=== PATIENT | female | born 1985 | race Caucasian/White ===

== ENCOUNTER 2023-09-05 09:35 | Emergency (ER) | payer BC ==
[~2023-09-05] VITALS: Ht 165.1 cm; Wt 95.3 kg
[2023-09-05] MEDS ORDERED: IV NS 0.9% 1,000 ML BAG IV ONE (10:30)
[2023-09-05] MEDS ORDERED: FAMOTIDINE/PF INJ 20 MG/2 ML VIAL IV ONE ×2 (10:30→10:42)
[2023-09-05] MEDS ORDERED: diphenhydrAMINE HCL 50 MG/ML VIAL IV ONE (10:30)
[2023-09-05] MEDS ORDERED: methylPREDNISolone SOD SUCC 125 MG/2ML VIAL IV ONE (10:30)
[2023-09-05] MEDS ORDERED: diphenhydrAMINE HCL 50 MG/ML VIAL ONE (10:42)
[2023-09-05] MEDS ORDERED: methylPREDNISolone SOD SUCC 125 MG/2ML VIAL ONE (10:42)
[2023-09-05] MEDS ORDERED: EPIN0.3P3 IM (11:13)
[2023-09-05] MEDS ORDERED: FAMO-131 PO (11:13)
[2023-09-05] MEDS ORDERED: PRED20TA PO (11:13)
[2023-09-05] MEDS ORDERED: DIPH25CA83 PO (11:13)
[2023-09-05 11:57] VITALS: BP 126/75; TEMP 98.2; O2SAT 100
== END 2023-09-05 11:57 | disposition home or self-care (01) ==
LOC: ER 09:51
DX: T78.40XA Allergy, unspecified, initial encounter (principal); X58.XXXA Exposure to other specified factors, initial encounter
CPT/HCPCS: 99284; 96374; 96375; 96361; J1200; J3490; J2930; J7030

== ENCOUNTER 2023-09-05 21:07 | Emergency (ER) | payer BC ==
[~2023-09-05] VITALS: Ht 165.1 cm; Wt 95.3 kg
[~2023-09-05 21:07] MED LIST: DIPH25CA83 PO; EPIN0.3P3 IM; FAMO-131 PO; PRED20TA PO
[2023-09-05 22:01] VITALS: BP 107/75; TEMP 98.1; O2SAT 95
== END 2023-09-05 22:45 | disposition left against medical advice (07) ==
LOC: ER 21:11
DX: T78.40XA Allergy, unspecified, initial encounter (principal); F17.200 Nicotine dependence, unspecified, uncomplicated; X58.XXXA Exposure to other specified factors, initial encounter

== ENCOUNTER 2023-09-06 18:40 | Emergency (ER) | payer BC ==
[~2023-09-06] VITALS: Ht 165.1 cm; Wt 95.3 kg
[2023-09-06] MEDS ORDERED: FAMOTIDINE (20 MG) 20 MG TABLET ONE ×2 (19:25→19:26)
[2023-09-06] MEDS ORDERED: diphenhydrAMINE HCL 50 MG CAPSULE ONE (19:25)
[2023-09-06] MEDS ORDERED: diphenhydrAMINE HCL 25 MG CAPSULE PO ONE (19:30)
[2023-09-06] MEDS ORDERED: IV NS 0.9% 1,000 ML BAG IV ONE (19:30)
[2023-09-06] MEDS ORDERED: FAMOTIDINE (20 MG) 20 MG TABLET PO ONE (19:30)
[2023-09-06 19:48] LABS: BASOPHILS % (AUTO) 0.9 % (0.0-2.0); EOSINOPHILS % (AUTO) 0.6 % (0.0-6.0); HEMATOCRIT 32 % (33-45); HEMOGLOBIN 10.3 g/dL (11.5-14.8); LYMPHOCYTES # (AUTO) 0.3 K/uL (0.8-4.8); LYMPHOCYTES % (AUTO) 5.8 % (20.0-44.0); MEAN CORPUSCULAR HEMOGLOBIN 24 PG (26.0-33.0); MEAN CORPUSCULAR HGB CONC 32 g/dl (31.0-36.0); MEAN CORPUSCULAR VOLUME 74 fL (82-100); MONOCYTES # (AUTO) 0.1 K/uL (0.1-1.30); MONOCYTES % (AUTO) 2.4 % (2.0-12.0); NEUTROPHILS % (AUTO) 90.3 % (43.0-81.0); PLATELET COUNT (AUTO) 421 K/uL (150-450); RED BLOOD CELL COUNT(AUTO) 4.31 MIL/uL (4.0-5.2); RED CELL DISTRIBUTION WIDTH 18.6 % (11.5-15.0); WHITE BLOOD COUNT (AUTO) 5.6 K/uL (4.3-11.0)
[2023-09-06 20:20] LABS: ALBUMIN 3.6 g/dL (3.4-5.0); BILIRUBIN,TOTAL 0.2 mg/dL (0.2-1.0); CREATININE 0.8 mg/dL (0.6-1.3); POTASSIUM 4.4 mmol/L (3.5-5.1); TOTAL PROTEIN, SERUM 7.2 g/dL (6.4-8.2)
[2023-09-06 21:45] LABS: ANISOCYTOSIS 1+; BAND % (MANUAL) 1 % (0.0-5.0); LYMPHOCYTES % (MANUAL) 6 % (16-48); MONOCYTES % (MANUAL) 2 % (0-11.0); NEUTROPHILS % (MANUAL) 91 (42-76); PLATELET ESTIMATE ADEQUATE
[2023-09-06 21:46] LABS: OVALOCYTES 1+
[2023-09-06 22:01] VITALS: BP 107/71; TEMP 99; O2SAT 99
== END 2023-09-06 22:00 | disposition home or self-care (01) ==
LOC: ER 18:52
DX: R21 Rash and other nonspecific skin eruption (principal); F32.A Depression, unspecified; F17.200 Nicotine dependence, unspecified, uncomplicated
CPT/HCPCS: 99283; 96360; 85025; 80048; 80076; 36415; 84702; 85007; Q0163; J7030